=== PATIENT | female | born 1985 | race Caucasian/White ===

== ENCOUNTER 2024-06-04 16:59 | Outpatient (CLI) | payer BC ==
--- NOTE | 2024-06-06 12:42 | Ultrasound Report ---
PROCEDURE: OB Anatomy Scan INDICATIONS: SUPERVISION OF OUTSIDE/PRIOR DATING DATA: Last menstrual period (LMP): 01/04/2024. LMP-based estimated date of delivery (BLAS): 10/10/2022. First dating scan (date and location): 03/09/2024. Estimated date of delivery (BLAS) from first dating scan: 10/18/2024. The below data below was generated using the ultrasound BLAS of 10/18/2024 TECHNIQUE: Real-time scanning was performed of the fetus, with image documentation and biometric measurements. COMPARISON: None. FINDINGS: General: A single living intrauterine gestation is present. Presentation: Breech Placenta: Placental position is anterior, without previa. Amniotic fluid index: 15.8 cm, within normal limits for gestational age. heart rate: 144 beats per minute. Maternal cervical canal: 4.7 cm long; normal length is 2.5 cm or more. biometrics: Biparietal diameter: 5.1 cm 21 weeks 2 days 79th percentile Head circumference: 19.0 cm 21 weeks 2 days 74th percentile Abdominal circumference: 16.2 cm 21 weeks 2 days 67th percentile Femur length: 3.3 cm 20 weeks 1 day 27th percentile Estimated gestational age from initial scan: 20 weeks 4 days Composite gestational age from present scan: 21 weeks 0 days Estimated weight and percentile: 381 g 60th percentile Measurement variability in biometric dating: +/- 10 days from 12-20 weeks gestation, +/- 2 weeks from 20-30 weeks gestation, +/- 3 weeks at 30 weeks gestation or later. Anatomic survey: Neuro: Ventricles are normal at less than 10 mm. Cisterna magna is normal at 3-11 mm. Cerebellum i s normal in size and morphology. Nuchal skin fold: Normal at less than 6 mm between 14 and 20 weeks gestational age. Face: Nose and lips, facial profile are normal. Spine: No evidence for spina bifida. Heart: 4-chambered heart and ventricular outflow tracts are suboptimally visualized. Diaphragm: Diaphragm is not well seen Stomach: Left-sided stomach is present. Kidneys: No hydronephrosis. Normal is less than 5 mm in 2nd trimester, less than 7 mm in 3rd trimester. Cord: 3 vessel cord has orthotopic insertion. Bladder: Normal in size. Extremities: All 4 extremities are visualized. IMPRESSION: Single live intrauterine with gestational age today of 21 weeks 0 days. Suboptimal visualization of 4 chambered heart/outflow tracts as well as diaphragm. Recommend short in terval imaging follow-up. Reviewed by: Estefania Horan MD on 06/06/2024 12:40 PM PDT Approved by: Estefania Horan MD on 06/06/2024 12:40 PM PDT Station ID: [id number]
== END 2024-06-04 17:00 | disposition home or self-care (01) ==
LOC: DI 16:59
PROVIDERS: ATTEND Nurse Practitioner Obstetrics & Gynecology
DX: Z34.02 Encounter for supervision of normal first pregnancy, second trimester (principal); Z36.89 Encounter for other specified antenatal screening